=== PATIENT | male | born 1950 | race Caucasian/White ===

== ENCOUNTER → 2024-08-04 13:00 | Outpatient (REF) | payer MEDICARE, BC, SELFPAY | LOC: RAD 13:00 | PROVIDERS: ATTENDING PHYSICIAN Family Medicine | DX: N18.31 Chronic kidney disease, stage 3a (principal); R82.998 Other abnormal findings in urine | CPT/HCPCS: 76770 ==

== ENCOUNTER → 2024-08-07 07:07 | Outpatient (REF) | payer MEDICARE, BC, SELFPAY | LOC: RAD 07:07 | PROVIDERS: ATTENDING PHYSICIAN Student in an Organized Health Care Education/Training Program; FAMILY PHYSICIAN Family Medicine | DX: K76.0 Fatty (change of) liver, not elsewhere classified (principal) | CPT/HCPCS: 76700 ==

== ENCOUNTER 2024-08-14 06:24 | Day surgery (SDC) | payer MEDICARE, BC, SELFPAY ==
[2024-08-14 07:20] LABS: Glucose - Point of Care 111 mg/dl (70-99)
== END 2024-08-14 10:14 | disposition home or self-care (01) ==
LOC: GI 06:24
PROVIDERS: ATTENDING PHYSICIAN Student in an Organized Health Care Education/Training Program; FAMILY PHYSICIAN Family Medicine
DX: Z12.11 Encounter for screening for malignant neoplasm of colon (principal); D12.0 Benign neoplasm of cecum; D12.2 Benign neoplasm of ascending colon; D12.3 Benign neoplasm of transverse colon; D12.4 Benign neoplasm of descending colon; K63.5 Polyp of colon; K57.30 Diverticulosis of large intestine without perforation or abscess without bleeding; K56.609 Unspecified intestinal obstruction, unspecified as to partial versus complete obstruction; K62.1 Rectal polyp; K64.0 First degree hemorrhoids; K64.4 Residual hemorrhoidal skin tags; Z86.0101 Personal history of adenomatous and serrated colon polyps
CPT/HCPCS: 45385; 45380; 45381; 88305; 82962

== ENCOUNTER 2024-11-21 06:09 | Day surgery (SDC) | payer MEDICARE, BC, SELFPAY ==
[2024-11-21 06:57] VITALS: BP 144/82
[2024-11-21 07:16] LABS: Glucose - Point of Care 104 mg/dl (70-99)
[2024-11-21 07:20] VITALS: BMI 25.1
[2024-11-21 07:22] VITALS: BMI 25.1
[2024-11-21 09:28] VITALS: BP 123/81
[2024-11-21 09:30] VITALS: BP 126/78
[2024-11-21 09:45] VITALS: BP 135/83
[2024-11-21 10:00] VITALS: BP 136/86
== END 2024-11-21 10:13 | disposition home or self-care (01) ==
LOC: SDS 06:09
PROVIDERS: ATTENDING PHYSICIAN Internal Medicine Gastroenterology
DX: D12.2 Benign neoplasm of ascending colon (principal); K63.5 Polyp of colon; K57.30 Diverticulosis of large intestine without perforation or abscess without bleeding; K64.0 First degree hemorrhoids
CPT/HCPCS: 45390; 88305; 82962

== ENCOUNTER → 2025-04-13 14:34 | Outpatient (REF) | payer MEDICARE, BC, SELFPAY | LOC: MRI 14:34 | PROVIDERS: ATTENDING PHYSICIAN Student in an Organized Health Care Education/Training Program; FAMILY PHYSICIAN Family Medicine | DX: K76.0 Fatty (change of) liver, not elsewhere classified (principal); F10.90 Alcohol use, unspecified, uncomplicated | CPT/HCPCS: 74183; 76391; A9575 ==

== ENCOUNTER 2025-05-08 06:21 | Day surgery (SDC) | payer MEDICARE, BC, SELFPAY ==
[2025-05-08 08:19] LABS: Glucose - Point of Care 102 mg/dl (70-99)
== END 2025-05-08 11:32 | disposition home or self-care (01) ==
LOC: GI 06:21
PROVIDERS: ATTENDING PHYSICIAN Student in an Organized Health Care Education/Training Program
DX: Z12.11 Encounter for screening for malignant neoplasm of colon (principal); D12.2 Benign neoplasm of ascending colon; K63.5 Polyp of colon; K63.89 Other specified diseases of intestine; K57.30 Diverticulosis of large intestine without perforation or abscess without bleeding; K62.1 Rectal polyp; K64.8 Other hemorrhoids; K26.3 Acute duodenal ulcer without hemorrhage or perforation; K31.7 Polyp of stomach and duodenum; K31.89 Other diseases of stomach and duodenum; E53.8 Deficiency of other specified B group vitamins; Z86.0101 Personal history of adenomatous and serrated colon polyps; Z98.890 Other specified postprocedural states
CPT/HCPCS: 45385; 45380; 43239; 82962; 88305; 88342